=== PATIENT | male | born 1975 | race Caucasian/White ===

== ENCOUNTER 2021-01-31 17:03 | Emergency (ER) | payer OTHER, SELFPAY ==
[2021-01-31 17:30] VITALS: BP 154/102; PULSE 74; RESP 18; TEMP 36.2; O2SAT 100
--- NOTE | 2021-01-31 18:10 | ED.URI ---
HPI - URI/Sore Throat General Chief Complaint: Upper Respiratory Infection Stated Complaint: cold sx Source: patient and RN notes reviewed History of Present Illness HPI Narrative: This is a 45-year-old male who presented to urgent care with complaints of a runny nose, congestion, chills, sore throat, chills, headache decreased appetite shortness of breath with tightness in his chest from congestion. Patient notes that he did not take anything at home other than water and guaifenesin to treat his symptoms with no improvements. The patient denies , CP, palpitation, extremity numbness, lightheadedness, dizziness, constipation, diarrhea, or fever. Related Data Allergies Allergy/AdvReac Type Severity Reaction Status Date / Time No Known Allergies Allergy Verified 01/31/21 18:04 Review of Systems Review of Systems: A 14 organ system Review of Systems was performed and pertinent positives included in the HPI, otherwise remaining ROS is negative. [facility] Family History Family History Mother Diabetes mellitus Father Family history of hypercholesterolemia Family history of mental disorder Depression Hypertension Family history of cardiovascular disease Acute myocardial infarction Cerebrovascular accident Grandparent Family history of hypercholesterolemia Hypertension Family history of cardiovascular disease Cerebrovascular accident Carcinoma of colon Family history of malignant melanoma Social History Social History Smoking status: Former smoker Alcohol intake: current Exam Narrative: GENERAL: This is a well-nourished, well-developed patient, in no apparent distress. HEAD: normocephalic, atraumatic. EYES: PERRL. Sclera clear/white. Vision is grossly intact. EARS: External ears normal, auditory canals clear and without drainage, TMs normal without perforation. Hearing grossly intact. NOSE: External nose normal with no obvious nasal discharge, nares without redness, no rhinorrhea. THROAT: Mucous membranes moist, posterior pharynx clear. NECK: Neck supple, non-tender without lymphadenopathy, masses or thyromegaly. CARDIOVASCULAR: Regular rate and rhythm without murmurs, gallops, or rubs. RESPIRATORY: Clear to auscultation. Breath sounds equal bilaterally. No wheezes, rales, or rhonchi. GASTROINTESTINAL: Abdomen soft, non-tender, nondistended. Bowel sounds are active. No hepato-splenomegaly, or palpable masses. No guarding. SKIN: warm, intact with no suspicious lesions or rash, good texture and turgor. NEURO: awake, alert, and oriented to person, place and time. There were no obvious focal neurologic abnormalities. Steady gait EXTREMITIES: Normal range of motion. No edema. No calf tenderness. Negative Homans sign bilaterally. BACK: Nontender without deformity or crepitance. No flank tenderness. Course Course Emergency Course: Patient will discharge home with Flonase, guaifenesin, Tessalon Perles, and albuterol. Patient did test negative for influenza in rapid Covid he will complete a Covid PCR. Vital Signs Vital signs: Vital Signs Temperature 97.2 F L 01/31/21 17:30 Pulse Rate 74 01/31/21 17:30 Respiratory Rate 18 01/31/21 17:30 Blood Pressure 154/102 H 01/31/21 17:30 Pulse Oximetry 100 01/31/21 17:30 Temperature 97.2 F L 01/31/21 17:30 Pulse Rate 74 01/31/21 17:30 Respiratory Rate 18 01/31/21 17:30 Blood Pressure 154/102 H 01/31/21 17:30 Pulse Oximetry 100 01/31/21 17:30 MDM - URI/Sore Throat Differential Diagnosis Differential diagnosis: Likely upper respiratory infection, sinusitis, viral infection, influenza and pharyngitis Discharge Plan Discharge Clinical Impression: Viral infection Patient Disposition: Home, Self-Care Condition: Stable Instructions: Antibiotic Form, Viral Syndrome (ED) Additional Instructions: Increase fluids especial
== END 2021-01-31 18:30 | disposition home or self-care (01) ==
PROVIDERS: Emergency Provider Nurse Practitioner; PCP Family Medicine
DX: B34.9 Viral infection, unspecified (principal); Z87.891 Personal history of nicotine dependence; Z20.822 Contact with and (suspected) exposure to COVID-19
CPT/HCPCS: 87804; 99213; G0463

== ENCOUNTER → 2021-02-01 07:27 | Outpatient (CLI) | payer OTHER, SELFPAY ==
[2021-02-01 19:18] LABS: SARS-CoV-2 RNA PCR Positive
== END ==
PROVIDERS: PCP Family Medicine; Visit Provider Nurse Practitioner
DX: U07.1 COVID-19 (principal)
CPT/HCPCS: C9803; U0003; U0005

== ENCOUNTER 2022-10-07 15:45 | Outpatient (CLI) | payer OTHER, SELFPAY ==
[2022-10-07 18:37] LABS: Basophils Absolute Auto 0.1 K/mm3 (0.0-0.1); Basophils Percent Auto 0.8 % (0.2-1.2); Eosinophils Absolute Auto 0.2 K/mm3 (0-0.3); Hemoglobin 14.7 g/dL (14.0-18.0); Immature Granulocyte Absolute 0.03 K/mm3 (0.00-0.031); Immature Granulocyte Percent A 0.4 % (0-0.5); Lymphocytes Absolute Auto 2.87 K/mm3 (0.9-3.2); Lymphocytes Percent Auto 37.8 % (18.3-44.2); Mean Corpuscular HGB Conc 34.2 g/dl (32-36); Mean Corpuscular Hemoglobin 31.5 pg (26-34); Mean Corpuscular Volume 92.3 fl (80-100); Mean Platelet Volume 9.2 fl (7.4-10.4); Monocytes Absolute Auto 0.6 K/mm3 (0.1-0.6); Monocytes Percent Auto 7.2 % (2.6-8.5); Neutrophils Absolute Auto 3.9 K/mm3 (1.3-6.7); Neutrophils Percent Auto 50.8 % (45.5-73.1); Platelet Count Result 212 k/mm3 (150-375); Red Blood Count 4.66 M/mm3 (4.6-6.20); Red Cell Distribution Width 12.5 % (11.5-14.5); White Blood Count 7.6 K/mm3 (4.5-10.0)
[2022-10-08 19:15] LABS: Anion Gap 7 mmol/L (8-16); Blood Urea Nitrogen 18 mg/dL (9-20); Calcium 9.1 mg/dL (8.4-10.2); Carbon Dioxide 29 mmol/L (22-30); Chloride 103 mmol/L (98-107); Cholesterol 230 mg/dL (0-200); Estimated Glomerular Filt Rate > 60; Glucose 88 mg/dL (65-110); HDL Direct 41 mg/dL; Potassium 4.7 mmol/L (3.4-5.0); Sodium 139 mmol/L (137-145); Triglycerides 92 mg/dL (<150)
[2022-10-08 19:25] LABS: LDL Cholesterol Direct 152 mg/dL
[2022-10-08 19:46] LABS: Prostate Specific Antigen 0.8 ng/mL (< OR = 4.0)
[2022-10-10 13:45] LABS: Testosterone Total 287 ng/dL (250-1100)
[2022-10-10 14:02] LABS: Testosterone Free 53.7 pg/mL (46.0-224.0)
== END 2022-10-07 15:46 | disposition home or self-care (01) ==
LOC: ANHGOSHLAB 15:47
PROVIDERS: PCP Emergency Medicine; Visit Provider Nurse Practitioner Family
DX: G45.9 Transient cerebral ischemic attack, unspecified (principal); E66.3 Overweight; N52.9 Male erectile dysfunction, unspecified; Z12.5 Encounter for screening for malignant neoplasm of prostate; Z82.49 Family history of ischemic heart disease and other diseases of the circulatory system
CPT/HCPCS: 36415; 80048; 80061; 84153; 84402; 84403; 84443; 85025; G0103

== ENCOUNTER → 2022-10-14 12:43 | Outpatient (CLI) | payer OTHER, SELFPAY ==
--- NOTE | ~2022-10-14 | MR_ITS ---
EXAMINATION: MR brain/brain stem wo con DATE: 10/14/2022 13:20 INDICATION: Transient cerebral ischemic attack, unspecified. TECHNIQUE: Magnetic resonance imaging (MRI) of the brain and brainstem was performed without intraven ous contrast. COMPARISON: Brain MRI 08/19/2018 FINDINGS: There is no intracranial hemorrhage, acute infarction, or abnormal intracranial mass lesion . There are scattered areas of nonspecific increased T2-weighted signal intensity in the cerebral whi te matter, which is within normal limits for the patient's age. The ventricles are normal in size. Th ere is mild mucosal thickening in the ethmoid sinuses. The orbits are normal. The mastoid air cells a re normal. IMPRESSION: 1. Normal aging brain. Reviewed, dictated and finalized at location A. IMPRESSION: 1. Normal aging brain.
== END ==
PROVIDERS: PCP Emergency Medicine; Visit Provider Nurse Practitioner Family
DX: G45.9 Transient cerebral ischemic attack, unspecified (principal)
CPT/HCPCS: 70551

== ENCOUNTER 2023-09-28 11:00 | Outpatient (CLI) | payer OTHER, SELFPAY ==
--- NOTE | ~2023-09-28 | US_ITS ---
COMPLETE ABDOMINAL ULTRASOUND Ordering provider: JESICA Palacios History: . R10.9 - Unspecified abdominal pain . Comparison: None. FINDINGS: LIVER: Normal size and echotexture. No focal hepatic lesions or perihepatic fluid collections are ayesha ntified. Portal vein flow is normal. GALLBLADDER: Unremarkable. No evidence for stones, sludge, gallbladder wall thickening or pericholecy stic fluid collections. A negative sonographic Malik's sign was noted. BILIARY DUCTS: No evidence for intra or extrahepatic biliary dilation. Common bile duct measures 4 mm in diameter which is within normal limits. PANCREAS: Not well demonstrated. SPLEEN: Normal size, echotexture and contour and measures 14.4 cm in length. KIDNEYS: Right measures 10.7x 5.4x 5.2 cm in length and the left 11.9x 4.6x 7.2 cm in length. There i s no evidence for hydronephrosis, solid renal mass, renal calculi or perinephric fluid collections. N o renal cysts. UPPER ABDOMINAL AORTA: Normal in caliber. Proximal aorta measures 2.1 cm, and mid aorta 2.2 cm. IVC: Patent. FREE FLUID: None. IMPRESSION: Unremarkable complete ultrasound of the abdomen. Reviewed, dictated and finalized at location A.
== END 2023-09-28 11:01 ==
LOC: GOSHIMG 11:00
PROVIDERS: PCP Nurse Practitioner Family; Visit Provider Nurse Practitioner Family
DX: R10.9 Unspecified abdominal pain (principal)
CPT/HCPCS: 76700

== ENCOUNTER 2024-09-09 08:09 | Outpatient (CLI) | payer OTHER, SELFPAY ==
--- NOTE | ~2024-09-09 | NM_ITS ---
EXAMINATION: NM stress w perf spect multi DATE: 09/09/2024 10:52 INDICATION: Transient cerebral ischemic attack TECHNIQUE: Rest images were obtained following intravenous administration of 11.11 mCi Tc99m tetrofos min (MyoPlayteau). The patient performed an exercise activity. At peak exercise, 35.7 mCi Tc99m tetrofosm in (Myoview) was administered intravenously, and stress images were obtained, initially in the supine position with repeat post stress images obtained in the prone position. Data was reconstructed into short axis and horizontal and vertical long axis SPECT images. Gated SPECT images were also obtained. COMPARISON: None. FINDINGS: There is a reversible small mild perfusion defect at the mid inferolateral segment segment consistent with ischemia. Normal left ventricular perfusion during rest with no infarction. There is normal le ft ventricular chamber size, wall motion and ejection fraction. Left ventricular ejection fraction m easures 63%. IMPRESSION: 1. Small mild reversible perfusion defect consistent with ischemia at the mid inferolateral segment.. 2. Left ventricular ejection fraction measuring 63%. Reviewed, dictated and finalized at location A. IMPRESSION: 1. Small mild reversible perfusion defect consistent with ischemia at the mid i nferolateral segment.. 2. Left ventricular ejection fraction measuring 63%.
--- OUTSIDE RECORDS SUMMARY | 2024-09-09 08:13 | XMS_ITS | Continuity of Care Document ---
Author Name [facility] Organization [facility] Care Team Providers Care Asp Net Programmer Name Role Phone [facility] Unavailable Unavailable Allergies, Adverse Reactions, Alerts Combined list of allergies from Department of Defense and Veterans Affairs facilities. It does not include entries that were removed or entered in error. Substance Category Reaction Severity Reaction type Status Date Reported Comments Source No Known Allergies Drug allergy (disorder) active 8 [facility] Encounters Combined list of: 1) Encounters from Department of Veterans Affairs facilities going backup to the last 18 months, not all [place] inpatient encounters are included; 2) Encounters from the Department of [facility] facilities going backup to 280 months. Location Location Details Encounter Type Encounter Number Reason For Visit Attending Provider ADM Date DC Date Status Disposition Source [facility] Outpatient Encounter [id number] 05/12 [facility] Procedures Combined list of: 1) Procedures from Department of Veterans Affairs facilities going back up to thelast 18 months, not all [place] non-surgical procedures are included; 2) All procedures from the Department of [facility] facilities. Procedure Procedure Type Code Date Perfomer Comments Sour e DETERMINATION OF REFRACTIVE STATE 05/04/2001 [facility] AUDIOMETRIC TESTING OF GROUPS 05/03/2001 [facility] SPECIAL REPORTS SUCH INSURANCE FORMS, MORE THAN THE INFORMATION CONVEYED IN THE USUAL MEDICAL COMMUNICATIONS OR STANDARD REPORTING FORM 07/24/2000 [facility] DETERMINATION OF REFRACTIVE STATE 07/24/2000 [facility] THERAPEUTIC PROCEDURE, 1 OR MORE AREAS, EACH 15 MINUTES; THERAPEUTIC EXERCISES TO DEVELOP STRENGTH AND ENDURANCE, RANGE OF MOTION AND FLEXIBILITY 06/29/2000 [facility] THERAPEUTIC PROCEDURE, 1 OR MORE AREAS, EACH 15 MINUTES; THERAPEUTIC EXERCISES TO DEVELOP STRENGTH AND ENDURANCE, RANGE OF MOTION AND FLEXIBILITY 06/24/2000 [facility] PHYSICAL PERFORMANCE TEST OR MEASUREMENT (EG, MUSCULOSKELETAL, FUNCTIONAL CAPACITY), WITH WRITTEN REPORT, EACH 15 MINUTES 06/23/2000 [facility] THERAPEUTIC ACTIVITIES, DIRECT (ONE-ON-ONE) PATIENT CONTACT (USE OF DYNAMIC ACTIVITIES TO IMPROVE FUNCTIONAL PERFORMANCE), EACH 15 MINUTES 06/15/2000 [facility] MANUAL THERAPY TECHNIQUES (EG, MOBILIZATION/ MANIPULATION, MANUAL LYMPHATIC DRAINAGE, MANUAL TRACTION), 1 OR MORE REGIONS, EACH 15 MINUTES 06/12/2000 [facility] NONINVASIVE EAR OR PULSE OXIMETRY FOR OXYGEN SATURATION; SINGLE DETERMINATION 05/20/2000 [facility] COLLECTION OF VENOUS BLOOD B Y VENIPUNCTURE 05/07/2000 [facility] SPECIAL REPORTS SUCH INSURANCE FORMS, MORE THAN THE INFORMATION CONVEYED IN THE USUAL MEDICAL COMMUNICATIONS OR STANDARD REPORTING FORM 03/24/2000 [facility] COLLECTION OF VENOUS BLOOD B Y VENIPUNCTURE 02/26/2000 [facility] PURE TONE AUDIOMETRY (THRESHOLD); AIR ONLY 01/09/2000 [facility] REPAIR INGUINAL HERNIA, SLIDING, ANY AGE 0810/02/1999 [facility] HANDLING AND/OR CONVEYANCE O F SPECIMEN FOR TRANSFER FROM THE OFFICE TO A LABORATORY 09/05/1999 [facility] HANDLING AND/OR CONVEYANCE O F SPECIMEN FOR TRANSFER FROM THE OFFICE TO A LABORATORY 05/20/1999 [facility] SUPP &MATERIAL (EXCEPT SPECTACLE),PROVID,THE PHYS/OTH QUALIFIED HEALTH MEDIA/INSTRUCTIONAL DESIGNER OVER &ABOVE THOSE USUALLY INCLD W THE OFFICE VISIT/OTH SER RENDERED (LIST DRUG,TRAYS,SUPP,OR MATERIAL PROVID) 03/13/1999 [facility] SKIN TEST; TUBERCULOSIS, INTRADERMAL 11/13/1998 [facility] EAR PROTECTOR ATTENUATION MEASUREMENTS 06/12/1998 [facility] Social History Combined list of available smoking, tobacco, and other social history from Department of Defense and Veterans Affairs facilities. Social History Type Response Date Comment Sourc e This section is an empty social history section. [facility] Advance Directives List of completed, amended, or rescinded Advance Directives on record at Department of Veterans Affairs facilities. An actual copy of the Directive is not included. Date Advance Directive Provider Source 11/18/2000 ADVANCE DIRECTIVE AMALIA CABEZAS [facility]
--- OUTSIDE RECORDS SUMMARY | 2024-09-09 08:13 | XMS_ITS | Clinical Summary ---
Author Organization [facility] [employer] Address [address] [place] [address] Care Team Providers Care Debt And Budget Counselor Name Role Phone Asa Baeza MD Primary Care Provider [phone] Mariposa Elam RN Unavailable [phone] Source Comments [facility],non-owned Affiliates and Associated Physician Practices is amultiple site organization consisting of ambulatory clinics and hospital sitesin [place], [place], [place] and [place]. This disclosure is being madepursuant to the Care Everywhere program and may not contain all information available regarding this patient. Last updated 17.[facility] [employer] Allergies No known active allergies Medications * Be aware that medications may not be up to date on this document. Alwaysverify current medications with the patient. Multiple Vitamin (DAILY VITAMIN PO) Take 1 Tab by mouth once daily Active aspirin (ASPIRIN) 81 MG tablet Take 81 mg by mouth once daily Active Active Problems Problem Noted Date Diagnosed Date Displacement of lumbar inter vertebral disc without myelopathy 06/08/2012 Family History Medical History Relation Name Comments Heart Failure Father Stroke Father Diabetes Mother Relation Name Status Comments Brother Alive Father Alive Mother Alive Sister Alive Social History Tobacco Use Types Packs/Day Years Used Date Smoking Tobacco: Former Cigarettes 0.5 20 0 04/25/1991 - 04/25/2011 Alcohol Use Standard Drinks/Week Comments No 0 (1 standard drink = 0.6 oz pur e alcohol) Sex and Gender Information Value Date Recorded Sex Assigned at Not on file Legal Sex Male 5:48 AM COMMUNICATION STUDIES PROFESSOR Gender Identity Not on file Sexual Orientation Not on file Last Filed Vital Signs Vital Sign Reading Time Taken Comments Blood Pressure 136/95 01/26/2015 8:16 AM COMMUNICATION STUDIES PROFESSOR Pulse 93 01/26/2015 8:16 AM COMMUNICATION STUDIES PROFESSOR Temperature 36.8 C (98.3 F) 01/26/2015 8:16 AM COMMUNICATION STUDIES PROFESSOR Respiratory Rate 20 01/26/2015 8:16 AM COMMUNICATION STUDIES PROFESSOR Oxygen Saturation 94% 01/26/2015 8:16 AM COMMUNICATION STUDIES PROFESSOR Inhaled Oxygen Concentration - - Weight 91.6 kg (202 lb) 01/24/2015 6:21 AM COMMUNICATION STUDIES PROFESSOR Height 170.2 cm (5' 7) 01/24/2015 6:21 AM COMMUNICATION STUDIES PROFESSOR Body Mass Index 31.64 01/24/2015 6:21 AM COMMUNICATION STUDIES PROFESSOR Plan of Treatment Health Maintenance Due Date Last Done Comments COLOGUARD (AGES 45-75) - COL ON CA SCREENING 1975 COLON MONITORING 1975 COLONOSCOPY - COLON CA SCREENING 1974 CT COLONOGRAPHY - COLON CA SCREENING 1975 Colorectal Cancer Screening 1975 FIT - COLON CA SCREENING 1974 FLEX SIG - COLON CA SCREENING 1974 LIPID TESTING 1974 HIV SCREENING 1989 HEPATITIS C SCREENING 10/01/1992 DTAP/TDAP/TD VACCINES (1 - Tdap) 1993 HEPATITIS B VACCINE (1 of 3 - 19+ 3-dose series) 1993 COVID-19 VACCINE (1 - 2023-2 5 season) 2023 DEPRESSION SCREENING 02/10/2024 ZOSTER VACCINE (1 of 2) 2024 INFLUENZA VACCINE (#1) 2024 HIB VACCINE Aged Out No longer eligi ble based on patient's age to complete this topic HPV VACCINE Aged Out No longer eligi ble based on patient's age to complete this topic MENINGOCOCCAL (Group B) VACC INE SHARED DECISION-MAKING Aged Out No longer eligibl e based on patient's age to complete this topic MENINGOCOCCAL GROUPS A/C/Y/W VACCINE Aged Out No longer eligible b ased on patient's age to complete this topic Medical Devices Implanted Type Area Animal Husbandry Worker Device Identifier Shelf Expiration Date Model / Serial / Lot Bone Canc Crush 15cc Implanted:Qty: 1 on 01/24/2015 by Ran Lal MD at [facility] Spine Lumbar [employer] 11/13/2018 [id number] / / [id number] Putty Dbm Progenix 5cc Implanted:Qty: 1 on 01/24/2015 by Ran Lal MD at [facility] Spine Lumbar Spinal [employer] 08/07/2016 [id number] / / [id number] Corelink Locking Nuts Implanted:Qty: 4 on 01/24/2015 by Ran Lal MD at [facility] Spine Lumbar [id number] / / Corelink Connectors Implanted:Qty: 4 on 01/24/2015 by Ran Lal MD at [facility] Spine Lumbar [id number] / / Corelink 6.5 X 50 Implanted:Qty: 2 on 01/24/2015 by Ran Lal MD at [facility] Spine Lumbar [id number] / / Corelink 6.5 X 40 Implanted:Qty: 2 on 01/24/2015 by Ran Lal MD at [facility] Spine Lumbar [id number] / / Corelink Cage 7mm Implanted:Qty: 1 on 01/24/2015 by Ran Lal MD at [facility] Spine Lumbar [id number] / / Corelink Curved William 35mm Implanted:Qty: 2 on 01/24/2015 by Ran Lal MD at [facility] Spine Lumbar [id number] / / Insurance COMMERCIAL GENERIC Member Subscriber Plan / Payer (Ef fective 2014-Present) Name:Glenn Louise Relation to Subscriber:Self Name:Glenn Louise Payer ID:Not on file Type:Commercial Address: [address] [place] Member Subscriber Plan / Payer (Ef fective for All Dates) Name:Glenn Louise Relation to Subscriber:Self Name:Glenn Louise Payer ID:Not on file Group ID:Not on file Type:Worker's Comp Address: [address] [place] [id number] Advance Directives * Full Code (Latest Code Status on File) Date Activated Date Inactivated Comments 01/24/2015 4:22 PM 01/26/2015 11:04 AM Care Teams Debt And Budget Counselor Relationship Specialty Start Date End Date Asa Baeza MD [address] [place] [id number] PCP - General Family Medicine 12/18/14 Mariposa Elam, RN Senior Teradata Developer 01/24/15
--- NOTE | 2024-09-09 09:08 | EST_ITS ---
Patient Info Name: Glenn Louise Age: 48 years : 1975 Gender: Male Ht: 67 in Wt: 210 lbs BSA: 2.16 m2 HR: 61 bpm BP: 140 / 99 mmHg Exam Date: 09/09/2024 9:08 AM Patient Status: O Admit Date: 09/09/2024 Exam Type: CA stress test treadmill w NM A nuclear stress test was performed. Staff Referring Physician: Shima Mayer Attending Provider: Shima Mayer Exercise Technologist: Lita Manriquez Exercise Physician: Chilo Torres DO Summary 1. 1. Abnormal Oscar exercise stress test for ischemic ST changes by ECG criteria. 2. 2. Good functional capacity, achieving 12 METs of workload. 3. 3. Baseline hypertension with hypertensive response to exercise. 4. 4. Appropriate HR response to exercise. 5. 5. Appropriate HR recovery at 1 minute post exercise. 6. 6. Nuclear scan to follow and will be reported separately. Please correlate with it. 7. 7. Patient informed of the above results. Protocol: Oscar Stress ECG Details Stage: REST Duration (min): 0 min : 16 sec Speed (mph): 0.0 Grade (%): 0 HR (bpm): 65 SBP (mmHg): --- DBP (mmHg): --- METS: --- Stage: REST Duration (min): 5 min : 26 sec Speed (mph): 0.0 Grade (%): 0 HR (bpm): 69 SBP (mmHg): 140 DBP (mmHg): 99 METS: --- Stage: STAGE 1 Duration (min): 1 min : 0 sec Speed (mph): 1.7 Grade (%): 10 HR (bpm): 93 SBP (mmHg): 140 DBP (mmHg): 99 METS: --- Stage: STAGE 1 Duration (min): 2 min : 0 sec Speed (mph): 1.7 Grade (%): 10 HR (bpm): 89 SBP (mmHg): 140 DBP (mmHg): 99 METS: --- Stage: STAGE 1 Duration (min): 3 min : 0 sec Speed (mph): 1.7 Grade (%): 10 HR (bpm): 92 SBP (mmHg): 188 DBP (mmHg): 99 METS: --- Stage: STAGE 2 Duration (min): 1 min : 0 sec Speed (mph): 2.5 Grade (%): 12 HR (bpm): 106 SBP (mmHg): 188 DBP (mmHg): 99 METS: --- Stage: STAGE 2 Duration (min): 2 min : 0 sec Speed (mph): 2.5 Grade (%): 12 HR (bpm): 109 SBP (mmHg): 203 DBP (mmHg): 89 METS: --- Stage: STAGE 2 Duration (min): 3 min : 0 sec Speed (mph): 2.5 Grade (%): 12 HR (bpm): 107 SBP (mmHg): 203 DBP (mmHg): 89 METS: --- Stage: STAGE 3 Duration (min): 1 min : 0 sec Speed (mph): 3.4 Grade (%): 14 HR (bpm): 119 SBP (mmHg): 177 DBP (mmHg): 94 METS: --- Stage: STAGE 3 Duration (min): 2 min : 0 sec Speed (mph): 3.4 Grade (%): 14 HR (bpm): 122 SBP (mmHg): 177 DBP (mmHg): 94 METS: --- Stage: STAGE 3 Duration (min): 3 min : 0 sec Speed (mph): 3.4 Grade (%): 14 HR (bpm): 125 SBP (mmHg): 190 DBP (mmHg): 109 METS: --- Stage: STAGE 4 Duration (min): 1 min : 0 sec Speed (mph): 4.2 Grade (%): 16 HR (bpm): 138 SBP (mmHg): 190 DBP (mmHg): 109 METS: --- Stage: STAGE 4 Duration (min): 2 min : 0 sec Speed (mph): 4.2 Grade (%): 16 HR (bpm): 148 SBP (mmHg): 213 DBP (mmHg): 96 METS: --- Stage: STAGE 4 Duration (min): 2 min : 20 sec Speed (mph): 4.2 Grade (%): 16 HR (bpm): 150 SBP (mmHg): 213 DBP (mmHg): 96 METS: --- Stage: RECOVERY Duration (min): 0 min : 39 sec Speed (mph): 0.0 Grade (%): 0 HR (bpm): 139 SBP (mmHg): 213 DBP (mmHg): 96 METS: --- Stage: RECOVERY Duration (min): 1 min : 39 sec Speed (mph): 0.0 Grade (%): 0 HR (bpm): 109 SBP (mmHg): 213 DBP (mmHg): 96 METS: --- Stage: RECOVERY Duration (min): 2 min : 39 sec Speed (mph): 0.0 Grade (%): 0 HR (bpm): 90 SBP (mmHg): 213 DBP (mmHg): 96 METS: --- Stage: RECOVERY Duration (min): 3 min : 39 sec Speed (mph): 0.0 Grade (%): 0 HR (bpm): 88 SBP (mmHg): 236 DBP (mmHg): 100 METS: --- Stage: RECOVERY Duration (min): 4 min : 5 sec Speed (mph): 0.0 Grade (%): 0 HR (bpm): 86 SBP (mmHg): 236 DBP (mmHg): 100 METS: --- Rest HR: 69 bpm Peak HR: 151 bpm Rest Sys BP: 140 mmHg Peak Sys BP: 236 mmHg Max Pred HR: 171 bpm % Max Pred HR: 88 % Target HR: 145 bpm Max RPP: 35,636 bpm*mmHg Winters Score: -3 BP Response: Patient exhibited a hypertensive response with stress Termination Reason: Reached target heart rate or workload Cardiac Symptoms: Shortness of breath, Chest pain Max ST Seg Deviation: 2.90 mm Total Time: 11 min : 20 sec Rest Rahman BP: 99 mmHg Peak Rahman BP: 100 mmHg Angina Score: None Total METS: 12.1 Resting ECG Sinus rhythm, ST-T wave abnormality with 1 mm downsloping depression in inferior leads and lateral leads. Stress ECG 2-[address] depression in inferior and V4-V6 leads. Arrhythmias None. Report Signatures
== END 2024-09-09 08:10 | disposition home or self-care (01) ==
PROVIDERS: PCP Nurse Practitioner Family; Visit Provider Nurse Practitioner Family
DX: G45.9 Transient cerebral ischemic attack, unspecified (principal); E66.3 Overweight; Z82.49 Family history of ischemic heart disease and other diseases of the circulatory system
CPT/HCPCS: 78452; 93017; A9502